=== PATIENT | female | born 1960 | race Caucasian/White ===

== ENCOUNTER 2020-07-27 10:27 | Outpatient (CLI) | payer OTHER ==
[2020-07-27 11:11] VITALS: BP 148/81
--- NOTE | 2020-07-27 11:11 | SLEEP CARE CONSULTATION ---
Information from patient questionnaire entered by Alaina Oneal. I have reviewed and concur with the information entered by Alaina Oneal. This document represents the service I personally performed and the decisions made by me, Farzaneh Agarwal ARNP. History of Present Illness Service Date and Time: 07/27/2020 1027 Reason for Visit: New patient, Previously diagnosed sleep apnea, sleep apnea on CPAP therapy Chief Complaint: reports: Other (have CPAP, just moved here and need supplies) Date of Onset: 6 years plus Usual bedtime: 10 pm Time it takes to fall asleep: 15 minutes Snores at night: Yes (without CPAP) Observed to quit breathing while asleep: No Sleeps alone due to snoring: No Number of times waking at night: 1 Reasons for waking at night: reports: Pain, Bathroom Toss, Turn, or Twitch while sleeping: Yes Recalls having dreams: Yes Usually gets out of bed at: 6 am Feels refreshed in the morning: Yes Morning headache: No Sleepy or fatigued during the day: No Ever fallen asleep while driving: No Takes day naps: No Dreams during day naps: No Prior sleep studies: Yes Year and Where: 2014 - [facility] in [place], [place] Additional HPI information: MILADYS ZUÑIGA who was previously diagnosed to have mild, AHI 9.5, obstructive sleep apnea-hypopnea syndrome comes in today to establish care for CPAP therapy. - Parasomnia Symptoms Ever been unable to move upon waking from sleep: No Walks in sleep: No Talks in sleep: Yes Ever acted out dreams in sleep: No Ever felt weak in the knees when startled or emotional: No Bothered by creepy, crawly, restless sensations in legs: No Problems with memory or concentration: No CPAP Compliance Data - Data Reviewed with Patient Average duration of nightly device use: 6 hr 35 min Compliance rate %: 94 (180 days) Current pressure setting (cmH2O): 5-12 Average residual AHI: 1.1 Compliance data discussion: She was using [facility] in [place]. She had no difficulty getting supplies. She is using a nasal pillows mask, Airfit P10 (ResMed), small size. She last changed her cushion 1 month ago. She does not have a back up mask at this time. Subjective Patient concerns: reports: dry mouth, nose, throat (occasional nose dryness, uses a nasal gel and humidifer to help). denies: aerophagia, mask discomfort, air blowing in eyes, mask leak noise, condensation in mask/hose, nasal congestion, epistaxis, other Observed to snore while using device: No Current pressure setting perceived as: comfortable On therapy, patient: reports: sleeping better, awakening more refreshed, being more awake and alert during the day, more rested overall. denies: drowsiness while driving Initial [place] Sleepiness Scale score: 9 (in 2020) Social History The patient's occupation is a Retired. Patient is and lives in [place]. Have you smoked in the past 12 months: No Alcohol use: Yes Alcohol amount and frequency: 1-2 glasses once a week Caffeine use: Yes Caffeine amount and frequency: 2 cups daily Family History Family history of sleep disordered breathing: No Family Hx Sleep Apnea: Sibling: Snoring Allergies and Home Medications Drug allergies reviewed: Yes (NKDA) Home medication list reviewed: Yes Allergy and home medication list: Multivitamin Review of Systems Cardiovascular: denies: high blood pressure Gastrointestinal: denies: heartburn Neurological: denies: headaches Psychiatric: denies: anxiety, depression Ear/Nose/Throat: reports: wisdom teeth removed. denies: tonsillectomy Musculoskeletal: reports: joint pain Physical Exam Blood Pressure: 148/81 Cuff size: wrist Heart Rate: 68 O2 Saturation: 97 Height: 5 ft 10 in Weight: 210 lb Body Mass Index: 30.1 BMI Classification: Obese Heart: regular rate and rhythm Lungs: clear bilaterally Impression and Plan 1. Obstructive Sleep Apnea-Hypopnea Syndrome, mild, with good treatment compliance and good apnea control. On CPAP therapy, the patient has better sleep quality and is more rested overall. Patient brought in copy of sleep study showing mild obstructive sleep apnea. She has moved to this area since March and needs supplies. I will make a prescription to update her supplies and since she is with [place] she will continue with [facility]. She has significant improvement of her apnea and is satisfied with her treatment. She intends to use CPAP medical terminologist. She states she has gained some weight during Covid pandemic and is working on try to lose weight. I encouraged her to continue with her efforts. I will follow up with her next year. Patient's apnea severity and rationale for treatment to reduce apnea, improve sleep quality and reduce cardiovascular and cerebrovascular events was reviewed. * Continue auto CPAP pressure at 5-11 cmH2O * Update supplies * Notify me if snoring with mask or feeling that the pressure is too much or too little * Attempt to lose weight * Call this office if any problems using CPAP * Return for follow up in 1 year, or sooner if concerns arise Counseling Topics: Spare mask, Weight loss health impact, Activity level Visit Type: In Office Time Spent with Patient (minutes): 30 Provider Statement: I spent 100% of the Face to Face Visit with the patient with greater than 50% spent counseling the patient and coordination of care.
== END 2020-07-27 10:28 | disposition home or self-care (01) ==
LOC: SC 10:27
PROVIDERS: ATTEND Nurse Practitioner Family
DX: G47.33 Obstructive sleep apnea (adult) (pediatric) (principal); E66.9 Obesity, unspecified; Z68.30 Body mass index [BMI] 30.0-30.9, adult
CPT/HCPCS: 99203; 99212

== ENCOUNTER 2020-09-16 14:34 | Outpatient (CLI) | payer OTHER ==
--- NOTE | 2020-09-16 14:57 | SLEEP CARE CONSULTATION ---
Information from patient questionnaire entered by Alaina Oneal. I have reviewed and concur with the information entered by Alaina Oneal. This document represents the service I personally performed and the decisions made by , Farzaneh Agarwal ARNP. History of Present Illness Service Date and Time: 09/16/2020 1434 Previous diagnosis: Mild, Obstructive Sleep Apnea-Hypopnea Syndrome AHI: 9.5 (in 2014) Reason for follow up: first compliance after device update Equipment obtained from: [employer] (getting supplies as needed, was a quick process) Mask style: Nasal pillows Backup mask available: Yes (old mask) Last cushion change: 3-4 weeks Prior sleep studies: Yes Year and Where: 2014 - [facility] in [facility] additional information: MILADYS ZUÑIGA was diagnosed to have mild, AHI 9.5, obstructive sleep apnea- hypopnea syndrome and returned today for CPAP therapy first compliance after updating device follow-up. CPAP Compliance Data - Data Reviewed with Patient Average duration of nightly device use: 7 hr 13 min Compliance rate %: 100 Current pressure setting (cmH2O): 5-11 Humidity settin Average residual AHI: 0.9 Subjective Patient concerns: reports: dry mouth, nose, throat (dry nose, using dry nose gel). denies: aerophagia, mask discomfort, air blowing in eyes, mask leak noise, condensation in mask/hose, nasal congestion, epistaxis, other Observed to snore while using device: No Current pressure setting perceived as: comfortable On therapy, patient: reports: sleeping better, awakening more refreshed, being more awake and alert during the day, more rested overall. denies: drowsiness while driving Initial [place] Sleepiness Scale score: 9 (in 2020) Current [place] Sleepiness Scale score: 9 Allergies and Home Medications Home medication list reviewed: Yes (no changes) Review of Systems Review of systems same as previous: Yes (no changes) Physical Exam Heart Rate: 63 O2 Saturation: 97 Height: 5 ft 10 in Weight: 206 lb Body Mass Index: 29.5 BMI Classification: Overweight Impression and Plan 1. Obstructive Sleep Apnea-Hypopnea Syndrome, mild, with excellent treatment compliance and excellent apnea control. On CPAP therapy, the patient has better sleep quality and is more rested overall. Patient is very satisfied with her new device and her CPAP therapy. She intends to continue with CPAP therapy for long-term. She has had some nasal dryness for which she uses moisturizing nasal gel as needed with good results. She occasionally gets some oral dryness and I encouraged her to try to increase the humidity on her machine. Oral dryness can be reduced by adjusting humidity setting higher or heated hose lower or by adjusting both settings. There are oral dryness products that can be used to reduce dryness such as Biotene products and Xylomelts. Patient voiced understanding and agreement with plan of care. Patient's apnea severity and rationale for treatment to reduce apnea, improve sleep quality and reduce cardiovascular and cerebrovascular events was reviewed. Patient encouraged to lose weight. * Continue auto CPAP pressure at 5-11 cmH2O * Notify me if snoring with mask or feeling that the pressure is too much or too little * Attempt to lose weight * Call this office if any problems using CPAP * Return for follow up in 1 year, or sooner if concerns arise Counseling Topics: Spare mask, Weight loss health impact Visit Type: In Office Time Spent with Patient (minutes): 11 Provider Statement: I spent 100% of the Face to Face Visit with the patient with greater than 50% spent counseling the patient and coordination of care.
== END 2020-09-16 14:35 | disposition home or self-care (01) ==
LOC: SC 14:34
PROVIDERS: ATTEND Nurse Practitioner Family
DX: G47.33 Obstructive sleep apnea (adult) (pediatric) (principal)
CPT/HCPCS: 99212

== ENCOUNTER 2020-11-10 08:16 | Outpatient (CLI) | payer OTHER ==
--- NOTE | 2020-11-14 09:37 | Mammography Report ---
BILATERAL DIGITAL SCREENING MAMMOGRAM 3D/2D: 11/10/2020 CLINICAL: Baseline exam. Routine screening. No prior exams were available for comparison. There are scattered fibroglandular elements in both br easts. No significant masses, calcifications, or other findings are seen in either breast. IMPRESSION: NEGATIVE There is no mammographic evidence of malignancy. A 1 year screening mammogram is recommended. This exam was interpreted at Station ID: [id number]. NOTE: For mammograms, a report in lay terms will be sent to the patient. Approximately 15% of breast malignancies will not be visualized mammographically. In the management of a palpable breast mass, a negative mammogram must not discourage biopsy of a clinically suspicious lesion. Electronically Signed By: Jeff morley/steven:11/10/2020 09:54:07 ACR BI-RADS Category 1: Negative 3341F PARENCHYMAL PATTERN: (A) - The breast(s) demonstrate(s) scattered fibroglandular densities. BI-RADS CATEGORY: (1) - 1 RECOMMENDATION: (ANNUAL) - Recommend routine annual screening mammography. [id number] 1 year screening LATERALITY: (B)
== END 2020-11-10 08:17 | disposition home or self-care (01) ==
LOC: DI 08:16
PROVIDERS: ATTEND Physician Assistant
DX: Z12.31 Encounter for screening mammogram for malignant neoplasm of breast (principal)

== ENCOUNTER 2022-07-16 13:36 | Outpatient (CLI) | payer OTHER ==
--- NOTE | 2022-07-17 11:32 | Mammography Report ---
BILATERAL DIGITAL SCREENING MAMMOGRAM 3D/2D: 07/16/2022 CLINICAL: Routine screening. Comparison is made to exam dated: 11/10/2020 mammogram - [facility]. There are scattered areas of fibroglandular density in both breasts (category b / 25%-50% glandular t issue). No significant masses, calcifications, or other findings are seen in either breast. There has been no significant interval change. IMPRESSION: NEGATIVE There is no mammographic evidence of malignancy. A 1 year screening mammogram is recommended. Based on the Tyrer Cuzick model (a risk assessment model) the patients lifetime risk is 5.9% and her 10 year risk is 2.7%. According to the ACR, ACS, and NCCN guidelines, an annual breast MRI exam yaima g with mammogram is recommended if the patients lifetime risk is 20% or greater. This exam was interpreted at Station ID: [id number]. NOTE: For mammograms, a report in lay terms will be sent to the patient. Approximately 15% of breast malignancies will not be visualized mammographically. In the management of a palpable breast mass, a negative mammogram must not discourage biopsy of a clinically suspicious lesion. Electronically Signed By: Juanito Jnoes M.D. aty/[email or web address]:07/16/2022 17:27:11 letter sent: No_Letter ACR BI-RADS Category 1: Negative 3341F PARENCHYMAL PATTERN: (A) - The breast(s) demonstrate(s) scattered fibroglandular densities. BI-RADS CATEGORY: (1) - 1 Mammogram [id number] 1 year screening LATERALITY: (B)
== END 2022-07-16 13:37 | disposition home or self-care (01) ==
LOC: DI 13:36
PROVIDERS: ATTEND Student in an Organized Health Care Education/Training Program
DX: Z12.31 Encounter for screening mammogram for malignant neoplasm of breast (principal)

== ENCOUNTER 2022-08-01 08:47 | Outpatient (CLI) | payer OTHER ==
--- NOTE | 2022-08-01 12:39 | SLEEP CARE CONSULTATION ---
Information from patient questionnaire entered by Belén Lucas. I have reviewed and concur with the information entered by Belén Lucas. This document represents the service I personally performed and the decisions made by me, Farzaneh Agarwal ARNP. History of Present Illness Service Date and Time: 08/01/2022 0847 Previous diagnosis: Mild, Obstructive Sleep Apnea-Hypopnea Syndrome AHI: 9.5 (in 2014) Reason for follow up: annual (LAST SEEN 08/2020) Equipment type: CPAP (RESMED Airsense 10, s/u 07/2020) Equipment obtained from: [employer] (getting supplies as needed, was a quick process) Mask style: Nasal pillows Backup mask available: Yes (old mask) Last cushion change: last night Prior sleep studies: Yes Year and Where: 2014 - [facility] additional information: MILADYS ZUÑIGA was diagnosed to have mild, AHI 9.5, obstructive sleep apnea- hypopnea syndrome and returned today for CPAP therapy annual follow-up. Sleep Study - Results Prior sleep studies: Yes Year and Where: 2014 - [place], [place] CPAP Compliance Data - Data Reviewed with Patient Average duration of nightly device use: 7 HRS 44 MINS Compliance rate %: 99 (02/01/22-07/30/22; 179/180 days used) Current pressure setting (cmH2O): 5-11 Average residual AHI: 1.0 Central apnea: 0.2 Obstructive apnea: 0.6 Hypopnea: 0.1 Average large leak: 0 Subjective Missed days of use due to: reports: other (power outage) Patient concerns: denies: aerophagia, mask discomfort, air blowing in eyes, mask leak noise, condensation in mask/hose, nasal congestion, dry mouth, nose, throat, epistaxis Observed to snore while using device: No Current pressure setting perceived as: comfortable On therapy, patient: reports: sleeping better, awakening more refreshed, being more awake and alert during the day, more rested overall. denies: drowsiness while driving Initial [place] Sleepiness Scale score: 9 (in 2020) Current [place] Sleepiness Scale score: 10 (08/01/22) Allergies and Home Medications Known drug allergies: No Drug allergies reviewed: Yes Home medication list reviewed: Yes (Losartan 25 mg daily) Allergy and home medication list: Allergies No Known Drug Allergies Allergy (Verified 07/31/22 13:22) Review of Systems Review of systems same as previous: Yes (no changes) Physical Exam Vital signs obtained and entered by: BELÉN Jones MA Blood Pressure: 136/82 (LEFT ARM) Cuff size: regular Heart Rate: 65 O2 Saturation: 97 Height: 5 ft 10 in Weight: 215 lb 6.4 oz Body Mass Index: 30.9 BMI Classification: Obese Impression and Plan 1. Obstructive Sleep Apnea-Hypopnea Syndrome, mild, with good treatment compliance and good apnea control. On CPAP therapy, the patient has better sleep quality and is more rested overall. Patient had significant improvement of sleep apnea and is satisfied with current CPAP therapy. She denies any issues with CPAP or mask use. I will update her prescription for supplies and have her follow up in 12 months. Patient's apnea severity and rationale for treatment to reduce apnea, improve sleep quality and reduce cardiovascular and cerebrovascular events was reviewed. 2. Obesity, unspecified. Currently patients BMI is 30.9. Obesity increases the risk of apnea, CPAP pressure requirements and overall health risks especially cardiovascular and diabetes. Thus patient is advised to lose weight. The patient's CPAP pressure range should accommodate some weight loss. Symptoms to report for additional pressure adjustment discussed. * Continue auto CPAP pressure at 5-11 cmH2O * Update supplies prescription * Notify me if snoring with mask or feeling that the pressure is too much or too little * Attempt to lose weight * Call this office if any problems using CPAP * Return for follow up in 1 year, or sooner if concerns arise Counseling Topics: Spare mask, Weight loss health impact Visit Type: In Office Time Spent with Patient (minutes): 20 Provider Statement: I spent 100% of the Face to Face Visit with the patient with greater than 50% spent counseling the patient and coordination of care.
[2022-08-01 12:43] VITALS: BP 136/82
== END 2022-08-01 08:48 | disposition home or self-care (01) ==
LOC: SC 08:47
PROVIDERS: ATTEND Nurse Practitioner Family
DX: G47.33 Obstructive sleep apnea (adult) (pediatric) (principal); E66.9 Obesity, unspecified; Z68.30 Body mass index [BMI] 30.0-30.9, adult
CPT/HCPCS: 99212; 99213

== ENCOUNTER 2023-04-16 08:51 | Day surgery (SDC) | payer MEDICARE ==
[2023-04-16] MEDS: LACTATED RINGERS 1,000 ML IV ONE ×2 (08:57→10:46)
[2023-04-16] MEDS ORDERED: PROPOFOL 500 MG/50 ML 500 MG/50 ML VIAL ONE (09:50)
[2023-04-16] MEDS ORDERED: LIDOCAINE-PF 2% 10 ML AMP SUBQ ONE (09:50)
--- NOTE | 2023-04-16 09:59 | ANESTHESIA ---
Pre-Anesthesia VS, & Labs - Diagnosis screening exam - Procedure colonoscopy Vital Signs: Temp Pulse Resp BP Pulse Ox O2 Flow Rate 36.5 C 70 16 163/73 H 98 04/16/23 08:57 04/16/23 08:57 04/16/23 08:57 04/16/23 08:57 04/16/23 08:57 Height: 5 ft 10 in Weight (kg): 97.4 kg Body Mass Index: 30.8 BMI Classification: Obese - NPO >8 hours - Is Patient ?: No Home Medications and Allergies Losartan [Cozaar] 25 mg PO DAILY 07/31/21 Allergies/Adverse Reactions: Allergies Allergy/AdvReac Type Severity Reaction Status Date / Time No Known Drug Allergies Allergy Verified 04/16/23 09:22 Anes History & Medical History - Anesthetic History Anesthesia Complications: reports: No previous complications - Medical History Cardiovascular: reports: Hypertension Pulmonary: reports: Sleep apnea, CPAP use Gastrointestinal: reports: None Urinary: reports: None Neuro: reports: None Musculoskeletal: reports: None Endocrine/Autoimmune: reports: None Skin: reports: None Smoking Status: Never smoker Psychosocial: reports: Alcohol (1 glass of wine per week) History of Cancer?: No - Surgical History Gynecologic: reports: section, Hysterectomy Exam General: Alert, Oriented x3, Cooperative, No acute distress Dental: WNL Mouth Openin Fingerbreadth Neck Mobility: Normal Mallampati classification: III Thyromental Distance: 4-6 cm Mental/Cognitive Status: Alert/Oriented X3, Normal for patient Plan Anesthesia Type: General, Total IV Consent for Procedure(s) Verified and Reviewed: Yes Code Status: Attempt Resuscitation ASA classification: 2-Mild systemic disease Is this case an emergency?: No
[2023-04-16 11:06] VITALS: BP 131/65; O2SAT 98
--- NOTE | 2023-04-16 11:38 | ANESTHESIA POST OP EVALUATION ---
Anesthesia Post Eval - Post Anesthesia Eval Vitals: Last Vital Signs Temp 37.1 C 04/16/23 10:46 Pulse 66 04/16/23 11:00 Resp 14 04/16/23 11:00 BP 131/65 H 04/16/23 11:00 Pulse Ox 98 04/16/23 11:00 O2 Flow Rate CV Function Including HR & BP: Stable Pain Control: Satisfactory Nausea & Vomiting: Negative Mental Status: Baseline Respiratory Status: Airway Patent Hydration Status: Satisfactory Anesthesia Complications: None
== END 2023-04-16 08:52 | disposition home or self-care (01) ==
LOC: SDS 08:51
PROVIDERS: ATTEND Surgery
DX: Z12.11 Encounter for screening for malignant neoplasm of colon (principal); I10 Essential (primary) hypertension; G47.33 Obstructive sleep apnea (adult) (pediatric); E66.9 Obesity, unspecified; Z68.30 Body mass index [BMI] 30.0-30.9, adult; Z86.010 Personal history of colon polyps
CPT/HCPCS: G0121; J7120